=== PATIENT | female | born 1975 | race Caucasian/White ===

== ENCOUNTER 2016-11-24 21:45 | Emergency (ER) | payer MEDICAID ==
[2016-11-24] MEDS ORDERED: ACETAMINOPHEN 325 MG TABLET PO ONE (23:45)
[2016-11-24] MEDS ORDERED: IBUPROFEN 600 MG TABLET PO ONE (23:45)
--- NOTE | 2016-11-24 23:46 | ER Document Report ---
ED General - General Chief Complaint: Fall Injury Stated Complaint: FALL,RIGHT SIDED PAIN Time Seen by Provider: 11/24/16 22:37 Notes: Patient is a 41-year-old female who presents after her knee gave out when she was on her front porch. This caused her to fall down onto her right hand and hit her right buttock on the stair. She was able to ambulate since this time but notes a severe, dull, constant throbbing pain to her right buttock and right shoulder. States moving these areas worsens the pain. Nothing improves the pain. No history of similar events in the past. States she did not hit her head or neck today during the fall. Denies chest pain, shortness of breath , or abdominal pain. She has not seen in her primary care doctor regarding todays concerns. TRAVEL OUTSIDE OF THE [place] IN LAST 30 DAYS: No - Related Data Allergies/Adverse Reactions: adhesive [Adhesive] Allergy (Severe, Verified 01/05/16 20:29) Blisters hydrocodone bitartrate [From Vicodin] Allergy (Severe, Verified 01/05/16 20:29) uncontrolled vomiting latex [Latex] Allergy (Severe, Verified 01/05/16 20:29) itch,swell tide Allergy (Intermediate, Uncoded 01/05/16 20:29) itch,rash Past Medical History - General Information source: Patient - Social History Smoking Status: Never Smoker Frequency of alcohol use: None Drug Abuse: None Lives with: Spouse/Significant other Family History: Arthritis, CAD, CVA, DM, Hyperlipidemia, Hypertension, Malignancy, Thyroid Disfunction Patient has suicidal ideation: No Patient has homicidal ideation: No Pulmonary Medical History: Reports: Hx Asthma, Hx Bronchitis Neurological Medical History: Reports: Hx Migraine Renal/ Medical History: Reports: Hx Ovarian Cysts. Denies: Hx Peritoneal Dialysis Musculoskeltal Medical History: Reports Hx Arthritis, Reports Hx Musculoskeletal Deformity - scoliosis, DDD, Reports Hx Musculoskeletal Trauma Traumatic Medical History: Reports: Hx Fractures - foot and ankle right Past Surgical History: Reports: Hx Abdominal Surgery - diagnostic laparoscopy, Hx Appendectomy, Hx Genitourinary Surgery - urethral diverticulectomy, Hx Gynecologic Surgery - cervical ablation, bladder sling, uterine trimed back lesions, Hx Oral Surgery - all 4 wisdom, Hx Orthopedic Surgery - knee bilateral , carpal tunnel right, Hx Tubal Ligation - Immunizations Immunizations up to date: Yes Hx Diphtheria, Pertussis, Tetanus Vaccination: Yes Review of Systems - Review of Systems Notes: Constitutional: Negative for fever. Eyes: Negative for visual changes. ENT: Negative for facial injury Cardiovascular: Negative for chest injury. Respiratory: Negative for shortness of breath. Gastrointestinal: Negative for abdominal injury. Genitourinary: Negative for genital injury Musculoskeletal: Positive for right buttock and right shoulder injury Skin: Negative for laceration/abrasions. Neurological: Negative for head injury. Physical Exam - Vital signs Vitals: Temp Pulse Resp BP Pulse Ox 97.8 F 68 18 150/97 H 98 11/24/16 21:48 11/24/16 21:48 11/24/16 21:48 11/24/16 21:48 11/24/16 21:48 Interpretation: Hypertensive Notes: PHYSICAL EXAMINATION: GENERAL: Well-appearing, no acute distress. HEAD: Atraumatic, normocephalic. EYES: Pupils equal round and reactive to light, extraocular movements intact, sclera anicteric, conjunctiva are normal. ENT: nares patent, no oral pharyngeal trauma. No hemotympanum, no Zarate's sign , no raccoon eyes. NECK: No midline cervical spine tenderness. Patient able to move their head to 45 bilaterally without any discomfort. LUNGS: Breath sounds clear to auscultation bilaterally and equal. No wheezes rales or rhonchi. HEART: Regular rate and rhythm without murmurs. CHEST WALL: No ecchymosis over the chest wall. ABDOMEN: Soft, nontender, normoactive bowel sounds. No guarding, no rebound. No seatbelt sign. EXTREMITIES: Normal range of motion, no pitting or edema. No abdominal bruising BACK: No midline spinal tenderness, step-offs, or deformities. NEUROLOGICAL: Face symmetric. Tongue protrudes midline. Extraocular motions intact. Pupils are 2 mm and equally reactive. Normal speech, normal gait. 5 out of 5 strength in both the distal and proximal upper and lower extremities bilaterally. Sensation is grossly intact throughout. Finger to nose testing normal. Pronator drift normal. PSYCH: Normal mood, normal affect. SKIN: Warm, Dry, normal turgor, no rashes or lesions noted. Course - Re-evaluation Re-evalutation: 11/24/16 23:46 Presentation of a well patient in no acute distress, vitals within normal limits after a mechanical fall. No focal neurologic deficits on exam, no evidence of basilar skull fracture on exam without evidence of hemotympanum, raccoon eyes, or periauricular hematoma. No papilledema. Patient is not on anticoagulation. GCS is 15. No loss of consciousness. No episodes of vomiting. Patient is therefore negative via Ukrainian head CT criteria and CT imaging will not be obtained at this time. Patient also evaluated by nexus criteria and found to be negative. Patient is also negative by barbadian C-spine criteria. No clinical evidence to suggest increased risk of cervical spine fracture. No indication for further imaging of the cervical spine. Patient does have some limited range of motion of right shoulder son x-ray will be obtained to exclude an acute fracture. Chest and abdominal exam are benign without any focal tenderness, shortness of breath, or bruising over the chest or abdominal wall. Patient has no flank tenderness. - Vital Signs Vital signs: Temp Pulse Resp BP Pulse Ox 97.8 F 68 18 150/97 H 98 11/24/16 21:48 11/24/16 21:48 11/24/16 21:48 11/24/16 21:48 11/24/16 21:48 - Diagnostic Test Radiology reviewed: Image reviewed, Reports reviewed Radiology results interpreted by me: 11/25/16 02:10 Right shoulder: No fracture or dislocation Discharge - Discharge Clinical Impression: Fall Right shoulder pain Qualifiers: Chronicity: acute Qualified Code(s): M25.511 - Pain in right shoulder Strain of gluteus medius of right lower extremity Qualifiers: Encounter type: initial encounter Qualified Code(s): S76.311A - Strain of muscle, fascia and tendon of the posterior muscle group at thigh level, right thigh, initial encounter Condition: Good Disposition: HOME, SELF-CARE Additional Instructions: You have been seen in the Emergency Department (ED) today following a fall. Your workup today did not reveal any injuries that require you to stay in the hospital. You can expect, though, to be stiff and sore for the next several days. You can take ibuprofen 600 mg every 6 hours as needed for pain. You can apply a hot pack or electric heating pad to the sore areas. You can also use topical "Aspercreme with lidocaine" to sore areas as needed. Please follow up with your primary care doctor as soon as possible regarding today's ED visit and your recent accident. Call your doctor or return to the ED if you develop a sudden or severe headache , confusion, slurred speech, facial droop, weakness or numbness in any arm or leg, extreme fatigue, vomiting more than two times, severe abdominal pain, or other symptoms that concern you.
[2016-11-25] MEDS ORDERED: LIDOCAINE 5% (700 MG) TRANSDERMAL ADH..PATCH TP ONE (02:23)
[2016-11-25 02:49] VITALS: BP 132/78
== END 2016-11-25 02:46 | disposition home or self-care (01) ==
LOC: ER 21:45
DX: S76.011A Strain of muscle, fascia and tendon of right hip, initial encounter (principal); S49.91XA Unspecified injury of right shoulder and upper arm, initial encounter; W10.8XXA Fall (on) (from) other stairs and steps, initial encounter; Z91.048 Other nonmedicinal substance allergy status; Z88.5 Allergy status to narcotic agent; Z91.040 Latex allergy status
CPT/HCPCS: 99283; 73030; J3490 ×3

== ENCOUNTER → 2017-04-19 | Outpatient (CLI) | payer MEDICAID ==
--- NOTE | 2017-04-19 16:36 | RADIOLOGY REPORT (SQ) ---
EXAM DESCRIPTION: KNEE LEFT 4 VIEW COMPLETED DATE/TIME: 04/19/2017 2:11 pm REASON FOR STUDY: UNILATERAL PRIMARY OA LEFT KNEE (M17.12) M17.12 UNILATERAL PRIMARY OSTEOARTHRITIS , LEFT KNEE COMPARISON: None. NUMBER OF VIEWS: Four views. TECHNIQUE: AP, lateral, and both oblique radiographic images acquired of the left knee. LIMITATIONS: None. FINDINGS: MINERALIZATION: Normal. BONES: No acute fracture or dislocation. No worrisome bone lesions. JOINT: No effusion. SOFT TISSUES: No soft tissue swelling. No radio-opaque foreign body. OTHER: No other significant finding. IMPRESSION: NEGATIVE STUDY OF THE LEFT KNEE. NO RADIOGRAPHIC EVIDENCE OF ACUTE INJURY. TECHNICAL DOCUMENTATION: JOB ID: [id number] [employer]- All Rights Reserved
== END ==
LOC: RAD 13:39
PROVIDERS: ATTEND Anesthesiology
DX: M17.12 Unilateral primary osteoarthritis, left knee (principal)

== ENCOUNTER 2017-10-31 15:15 | Emergency (ER) | payer MEDICAID, OTHER ==
[2017-10-31] MEDS ORDERED: OXYCODONE-ACETAMINOPHEN 5-325 MG TABLET PO ONE (15:44)
[2017-10-31] MEDS ORDERED: KETOROLAC TROMETHAMINE INJ/PF 30 MG/1 ML SDV IM ONE (15:44)
--- NOTE | 2017-10-31 15:57 | ER Document Report ---
ED Fall - General Chief Complaint: Fall Stated Complaint: FALL/BACK PAIN Time Seen by Provider: 10/31/17 15:35 Mode of Arrival: Medic Information source: Patient TRAVEL OUTSIDE OF THE [place] IN LAST 30 DAYS: No - HPI Patient complains to provider of: fall, back, neck right shoulder pain Occurred: Just prior to arrival Where: Home Notes: Patient is here with complaints of pain after falling. The patient has a long history of chronic pain and is currently on Toradol, Percocet, OxyContin. She had a recent right shoulder surgery at the end of July. She states that she was sitting down had a plastic lawnchair in the living room of her friend's house when the chair broke causing her to fall backwards and hit the back of her head neck right shoulder upper and lower back. She denies loss of consciousness. She is not on blood thinners. She denies any blurred or loss vision. She does complain of a mild headache. She denies any new unilateral numbness, tingling, weakness. No nausea, vomiting, diarrhea. No chest pain or shortness of breath. No abdominal pain. She denies any difficulty controlling her bowels or bladder. Pain is worse with any sort of movement, better with rest. She states the last dose of pain medication she took was to Percocet early this morning, she is not taking any further pain medication today. She denies any other injuries or any other complaints at this time. - Related data Allergies/Adverse Reactions: adhesive [Adhesive] Allergy (Severe, Verified 05/22/17 20:39) Blisters hydrocodone bitartrate [From Vicodin] Allergy (Severe, Verified 05/22/17 20:39) uncontrolled vomiting latex [Latex] Allergy (Severe, Verified 05/22/17 20:39) itch,swell tide Allergy (Intermediate, Uncoded 01/05/16 20:29) itch,rash Past Medical History - Social History Smoking Status: Former Smoker Frequency of alcohol use: Occasional Drug Abuse: None Family History: Arthritis, CAD, CVA, DM, Hyperlipidemia, Hypertension, Malignancy, Thyroid Disfunction Patient has suicidal ideation: No Patient has homicidal ideation: No Pulmonary Medical History: Reports: Hx Asthma, Hx Bronchitis Neurological Medical History: Reports: Hx Migraine Renal/ Medical History: Reports: Hx Ovarian Cysts. Denies: Hx Peritoneal Dialysis Musculoskeltal Medical History: Reports Hx Arthritis, Reports Hx Musculoskeletal Deformity - scoliosis, DDD, Reports Hx Musculoskeletal Trauma Traumatic Medical History: Reports: Hx Fractures - foot and ankle right Past Surgical History: Reports: Hx Abdominal Surgery - diagnostic laparoscopy, Hx Appendectomy, Hx Genitourinary Surgery - urethral diverticulectomy, Hx Gynecologic Surgery - cervical ablation, bladder sling, uterine trimed back lesions, Hx Oral Surgery - all 4 wisdom, Hx Orthopedic Surgery - knee bilateral , carpal tunnel right, Hx Tubal Ligation - Immunizations Immunizations up to date: Yes Hx Diphtheria, Pertussis, Tetanus Vaccination: Yes Review of Systems - Review of Systems -: Yes All other systems reviewed and negative Physical Exam - Vital signs Vitals: Temp Pulse Resp BP Pulse Ox 98.1 F 65 18 147/75 H 99 10/31/17 15:21 10/31/17 15:21 10/31/17 15:21 10/31/17 15:21 10/31/17 15:21 - Notes Notes: GENERAL: alert, cooperative, nontoxic, no distress. HEAD: normocephalic, atraumatic EYES: conjunctiva pink without discharge, no external redness or swelling. PERRL , EOM'S INTACT EARS: no external swelling, no external redness. No hemotympanum EM NOSE: atraumatic, no external swelling. No bleeding MOUTH/THROAT: mucous membranes moist and pink, posterior pharynx without erythema, swelling, exudate. No trismus or drooling. NECK: soft, supple, full range of motion, no meningismus. Mild midline tenderness to palpation of the cervical spine. No step-offs or crepitus. Slight stiffness noted. CHEST: no distress, lungs clear and equal throughout. No wheezing, rales, rhonchi. CARDIAC: regular rate and rhythm, no murmur, normal capillary refill, normal pulses. No peripheral edema noted. ABDOMEN: Soft, nontender. No ecchymosis. BACK: full range of motion, no CVA tenderness. Essentially diffuse tenderness to the midline lumbar and thoracic spine. No step-offs or crepitus. EXTREMITIES: full range of motion of all extremities. No redness, no swelling. NEURO: alert and oriented x 3, no focal deficits, full range of motion of all extremities. Cranial nerves II through XII are grossly intact. Reflexes are normal bilaterally to upper and lower extremities. Normal sensation bilaterally. Normal strength bilaterally. PYSCH: appropriate mood, affect. Patient is cooperative. SKIN: pink, warm, dry, no rash. Course - Re-evaluation Re-evalutation: 10/31/17 17:09 Patient is nontoxic appearing with stable vitals. Patient is here today after falling from a chair. She has a history of chronic pain and is on Toradol, Percocet, OxyContin. She states that she sat in a plastic lawnchair that was on a hardwood floor causing her to fall backwards and landed on her back. She denies any loss of consciousness. She is on no blood thinners. She has a nonfocal neurological exam. She essentially has tenderness along her entire spine. CT the cervical spine as well as x-rays of the thoracic and lumbar spine show no acute fractures. X-rays of the right shoulder show no acute process. Patient has no sign of cauda equina, epidural abscess/bleed. She had no loss of consciousness, is not on blood thinning medications, had a minor fall , is on a blood thinning medications, therefore I did not CT her brain. Patient will be discharged home with instructions to take her normal pain medication as prescribed. Follow-up with her doctors if not better in 1 week, sooner for worsening pain, fever, numbness, tingling, weakness, bowel or bladder dysfunction, persistent vomiting, or for any further concerns. The patient is noted to have elevated blood pressure during today's emergency department visit. The patient was informed of this finding. The patient was instructed that this may be related to pre-hypertension and requires further evaluation with a primary care provider. The patient has no hypertensive symptoms at this time. The patient's emergency department workup and current diagnosis were explained to the patient and or family. Follow-up instructions were provided. Medications if prescribed were discussed. Instructions for when to return to the emergency department including specific worrisome symptoms were discussed with the patient and/or family. - Vital Signs Vital signs: Temp Pulse Resp BP Pulse Ox 98.1 F 65 18 147/75 H 99 10/31/17 15:21 10/31/17 15:21 10/31/17 15:21 10/31/17 15:21 10/31/17 15:21 - Diagnostic Test Radiology reviewed: Image reviewed, Reports reviewed - CT cervical spine, x- rays of thoracic and lumbar spine, x-rays of right shoulder, show no acute findings. Discharge - Discharge Clinical Impression: Multiple contusions, Strains of multiple ligaments or muscles Condition: Stable Disposition: HOME, SELF-CARE Instructions: Muscle Strain ([facility]), Neck Injury (Cervical Strain) ([facility]), Upper Back Strain ([facility]), Contusion ([facility]) Additional Instructions: Take your normal pain medication as needed for pain. Apply ice to sore areas. Avoid lying around and try to stay somewhat active without any heavy lifting. Follow-up with your doctor if not better in 1 week, sooner for worsening pain, high fever, persistent vomiting, severe headache, blurred or loss vision, difficulty controlling her bowels or bladder, or for any further concerns. Your blood pressure was elevated during today's visit. Have this rechecked with your doctor. Forms: Elevated Blood Pressure, Smoking Cessation Education Referrals: [facility] [Provider Group] - Follow up as needed
--- NOTE | 2017-10-31 16:27 | RADIOLOGY REPORT (SQ) ---
EXAM DESCRIPTION: CT CERVICAL SPINE WITHOUT COMPLETED DATE/TIME: 10/31/2017 4:15 pm REASON FOR STUDY: fall from chair, pain COMPARISON: None. TECHNIQUE: Axial images acquired through the cervical spine without intravenous contrast. Images re viewed with lung, soft tissue and bone windows. Reconstructed coronal and sagittal MPR images review ed. Images stored on PACS. All CT scanners at this facility use dose modulation, iterative reconstruction, and/or weight based d osing when appropriate to reduce radiation dose to as low as reasonably achievable (ALARA). [facility]: Dose Right [facility]: CareDose [facility]: Dose Right [facility]: Teradose 4D [facility]: Smart Revolver RADIATION DOSE: CT Rad equipment meets quality standard of care and radiation dose reduction techniq ues were employed. CTDIvol: 22.0 mGy. DLP: 442 mGy-cm. mGy. LIMITATIONS: None. FINDINGS: ALIGNMENT: Anatomic. MINERALIZATION: Normal. VERTEBRAL BODIES: No fractures or dislocation. DISCS: No significant disc disease. FACETS, LATERAL MASSES, POSTERIOR ELEMENTS: No fractures. No dislocation. No acute findings. HARDWARE: None in the spine. VISUALIZED RIBS: No fractures. LUNG APICES AND SOFT TISSUES: No significant or acute findings. OTHER: No other significant finding. IMPRESSION: NO ACUTE OR SIGNIFICANT FINDINGS IN THE CERVICAL SPINE. TECHNICAL DOCUMENTATION: JOB ID: [id number] Quality ID # [id number]: Final reports with documentation of one or more dose reduction techniques (e.g., Au tomated exposure control, adjustment of the mA and/or kV according to patient size, use of iterative reconstruction technique) 2010 [employer]- All Rights Reserved Reading location - IP/workstation name: [email or web address]
--- NOTE | 2017-10-31 16:45 | RADIOLOGY REPORT (SQ) ---
EXAM DESCRIPTION: SHOULDER RIGHT 2 OR MORE VIEWS COMPLETED DATE/TIME: 10/31/2017 4:36 pm REASON FOR STUDY: fall from chair, pain COMPARISON: 05/22/2017 NUMBER OF VIEWS: Three views. TECHNIQUE: Internal rotation, external rotation, and Y view images acquired of the right shoulder. LIMITATIONS: None. FINDINGS: MINERALIZATION: Normal. BONES: No acute fracture or dislocation. No worrisome bone lesions. JOINTS: No dislocation. VISUALIZED LUNGS AND RIBS: No pneumothorax. No rib fracture. SOFT TISSUES: No radiopaque foreign body. OTHER: No other significant finding. IMPRESSION: NEGATIVE STUDY OF THE RIGHT SHOULDER. NO RADIOGRAPHIC EVIDENCE OF ACUTE INJURY. TECHNICAL DOCUMENTATION: JOB ID: [id number] [employer]- All Rights Reserved Reading location - IP/workstation name: [email or web address]
--- NOTE | 2017-10-31 16:47 | RADIOLOGY REPORT (SQ) ---
EXAM DESCRIPTION: L SPINE WHOLE COMPLETED DATE/TIME: 10/31/2017 4:36 pm REASON FOR STUDY: fall from chair, pain COMPARISON: 10/01/2015 NUMBER OF VIEWS: Five views including obliques. TECHNIQUE: AP, lateral, oblique, and sacral radiographic images acquired of the lumbar spine. LIMITATIONS: None. FINDINGS: MINERALIZATION: Normal. SEGMENTATION: Normal. No transitional anatomy. ALIGNMENT: Minimal scoliosis. VERTEBRAE: Maintained height. No fracture or worrisome bone lesion. DISCS: Preserved height. No significant osteophytes or end plate irregularity. POSTERIOR ELEMENTS: Pedicles and facets are intact. No pars defect or posterior arch defects. HARDWARE: None in the spine. PARASPINAL SOFT TISSUES: Normal. PELVIS: Intact as visualized. No fractures or worrisome bone lesions. SI joints intact. OTHER: No other significant finding. IMPRESSION: Minimal scoliosis. No acute abnormality. TECHNICAL DOCUMENTATION: JOB ID: [id number] [employer]- All Rights Reserved Reading location - IP/workstation name: [email or web address]
--- NOTE | 2017-10-31 16:52 | RADIOLOGY REPORT (SQ) ---
EXAM DESCRIPTION: T SPINE AP/LAT COMPLETED DATE/TIME: 10/31/2017 4:36 pm REASON FOR STUDY: fall from chair, pain COMPARISON: None. NUMBER OF VIEWS: Two views. TECHNIQUE: AP and lateral radiographic images acquired of the thoracic spine. LIMITATIONS: None. FINDINGS: MINERALIZATION: Normal. ALIGNMENT: Normal. No scoliosis. VERTEBRAE: No fracture or bone lesion. Maintained height, normal segmentation. DISCS: No significant loss of height or significant narrowing. No large osteophytes. HARDWARE: None in the spine. MEDIASTINUM AND SOFT TISSUES: Normal heart size and aortic contour. No soft tissue abnormality. VISUALIZED LUNG COBB: Clear. OTHER: No other significant finding. IMPRESSION: NO SIGNIFICANT RADIOGRAPHIC FINDING IN THE THORACIC SPINE. TECHNICAL DOCUMENTATION: JOB ID: [id number] [employer]- All Rights Reserved Reading location - IP/workstation name: [email or web address]
[2017-10-31 17:27] VITALS: BP 114/67
== END 2017-10-31 17:27 | disposition home or self-care (01) ==
LOC: ER 15:15
DX: T14.8XXA Other injury of unspecified body region, initial encounter (principal); M54.9 Dorsalgia, unspecified; M54.2 Cervicalgia; M54.5 Low back pain; M54.6 Pain in thoracic spine; G89.29 Other chronic pain; R51 Headache; M25.511 Pain in right shoulder; R03.0 Elevated blood-pressure reading, without diagnosis of hypertension; W19.XXXA Unspecified fall, initial encounter; Z79.899 Other long term (current) drug therapy; Z87.891 Personal history of nicotine dependence; J45.909 Unspecified asthma, uncomplicated
CPT/HCPCS: 99284; 96372; 72110; 73030; 72070; 72125; J1885

== ENCOUNTER 2017-12-09 13:48 | Emergency (ER) | payer MEDICAID, OTHER ==
[2017-12-09] MEDS ORDERED: FENTANYL CITRATE INJ/PF 100 MCG/2 ML AMPUL IM ONE (14:41)
[2017-12-09] MEDS ORDERED: CEFTRIAXONE INJ 1000 MG VIAL IM ONE (14:41)
--- NOTE | 2017-12-09 14:44 | ER Document Report ---
ED Medical Screen (RME) - General Chief Complaint: Skin Problem Stated Complaint: POSSIBLE INSECT BITE Time Seen by Provider: 12/09/17 14:37 Notes: RAPID MEDICAL EVALUATION DISCLOSURE I have seen this patient as part of a Rapid Medical Evaluation and, if applicable, placed any initially appropriate orders. The patient will be seen and fully evaluated, including a full history and physical exam, by a provider ( in Main ED or Fast Track) when a room becomes available. 42-year-old female here with complaints of buttock abscess that she was seen for and prescribed Keflex. It was already draining green purulent material and she states it continues to drain green purulent material. She is here today because she has had subjective fevers chills and the pain has worsened. She feels like the area of redness has worsened as well. TRAVEL OUTSIDE OF THE [place] IN LAST 30 DAYS: No - Related Data Allergies/Adverse Reactions: adhesive [Adhesive] Allergy (Severe, Verified 12/09/17 13:50) Blisters hydrocodone bitartrate [From Vicodin] Allergy (Severe, Verified 12/09/17 13:50) uncontrolled vomiting latex [Latex] Allergy (Severe, Verified 12/09/17 13:50) itch,swell tide Allergy (Intermediate, Uncoded 12/09/17 13:50) itch,rash Past Medical History Pulmonary Medical History: Reports: Hx Asthma, Hx Bronchitis Neurological Medical History: Reports: Hx Migraine Renal/ Medical History: Reports: Hx Ovarian Cysts. Denies: Hx Peritoneal Dialysis Musculoskeltal Medical History: Reports Hx Arthritis, Reports Hx Musculoskeletal Deformity - scoliosis, DDD, Reports Hx Musculoskeletal Trauma Traumatic Medical History: Reports: Hx Fractures - foot and ankle right Past Surgical History: Reports: Hx Abdominal Surgery - diagnostic laparoscopy, Hx Appendectomy, Hx Genitourinary Surgery - urethral diverticulectomy, Hx Gynecologic Surgery - cervical ablation, bladder sling, uterine trimed back lesions, Hx Oral Surgery - all 4 wisdom, Hx Orthopedic Surgery - knee bilateral , carpal tunnel right, Hx Tubal Ligation - Immunizations Immunizations up to date: Yes Hx Diphtheria, Pertussis, Tetanus Vaccination: Yes Physical Exam - Vital signs Vitals: Temp Pulse Resp BP Pulse Ox 99.8 F 97 24 H 170/110 H 99 12/09/17 14:02 12/09/17 14:02 12/09/17 14:02 12/09/17 14:02 12/09/17 14:02 Course - Vital Signs Vital signs: Temp Pulse Resp BP Pulse Ox 99.8 F 97 24 H 170/110 H 99 12/09/17 14:02 12/09/17 14:02 12/09/17 14:02 12/09/17 14:02 12/09/17 14:02
[2017-12-09] MEDS ORDERED: CLINDAMYCIN 600 MG/D5W RTU 600 MG/50 ML RTUPB IV ONE (15:31)
--- NOTE | 2017-12-09 15:36 | ER Document Report ---
ED Skin Rash/Insect Bite/Abscs - General Chief Complaint: Skin Problem Stated Complaint: POSSIBLE INSECT BITE Time Seen by Provider: 12/09/17 14:37 Mode of Arrival: Ambulatory Information source: Patient TRAVEL OUTSIDE OF THE [place] IN LAST 30 DAYS: No - HPI Patient complains to provider of: Tender/swollen area Notes: Patient is here with complaints of possible abscess to the right buttock. She states that about a week ago she noticed a small swollen area to the right buttock. She developed fevers states that her fevers has since improved and she has had no fever today. She was seen by her primary care doctor a few days after noticing the swollen area and was placed on Keflex. She states that a few days ago the area ruptured and is been draining brown foul-smelling drainage. Pain seems to be getting worse. Again she had a fever, but states the fever has since resolved. She denies any nausea, vomiting, diarrhea. She denies a history of diabetes. She does have a history of chronic pain. She is on Toradol, Percocet, OxyContin. She denies any abdominal pain. She has had an abscess in the past, but this was several years ago. Pain is worse with touching the area as well as sitting, nothing seems to make it better. No other complaints at this time. - Related Data Allergies/Adverse Reactions: adhesive [Adhesive] Allergy (Severe, Verified 12/09/17 13:50) Blisters hydrocodone bitartrate [From Vicodin] Allergy (Severe, Verified 12/09/17 13:50) uncontrolled vomiting latex [Latex] Allergy (Severe, Verified 12/09/17 13:50) itch,swell tide Allergy (Intermediate, Uncoded 12/09/17 13:50) itch,rash Past Medical History - Social History Smoking Status: Unknown if Ever Smoked Family History: Arthritis, CAD, CVA, DM, Hyperlipidemia, Hypertension, Malignancy, Thyroid Disfunction Patient has suicidal ideation: No Patient has homicidal ideation: No Pulmonary Medical History: Reports: Hx Asthma, Hx Bronchitis Neurological Medical History: Reports: Hx Migraine Renal/ Medical History: Reports: Hx Ovarian Cysts. Denies: Hx Peritoneal Dialysis Musculoskeltal Medical History: Reports Hx Arthritis, Reports Hx Musculoskeletal Deformity - scoliosis, DDD, Reports Hx Musculoskeletal Trauma Traumatic Medical History: Reports: Hx Fractures - foot and ankle right Past Surgical History: Reports: Hx Abdominal Surgery - diagnostic laparoscopy, Hx Appendectomy, Hx Genitourinary Surgery - urethral diverticulectomy, Hx Gynecologic Surgery - cervical ablation, bladder sling, uterine trimed back lesions, Hx Oral Surgery - all 4 wisdom, Hx Orthopedic Surgery - knee bilateral , carpal tunnel right, Hx Tubal Ligation - Immunizations Immunizations up to date: Yes Hx Diphtheria, Pertussis, Tetanus Vaccination: Yes Review of Systems - Review of Systems -: Yes All other systems reviewed and negative Physical Exam - Vital signs Vitals: Temp Pulse Resp BP Pulse Ox 99.8 F 97 24 H 170/110 H 99 12/09/17 14:02 12/09/17 14:02 12/09/17 14:02 12/09/17 14:02 12/09/17 14:02 - Notes Notes: GENERAL: alert, cooperative, nontoxic, no distress. HEAD: normocephalic, atraumatic EYES: conjunctiva pink without discharge, no external redness or swelling. EARS: no external swelling, no external redness NOSE: atraumatic, no external swelling MOUTH/THROAT: mucous membranes moist and pink, posterior pharynx without erythema, swelling, exudate. No trismus or drooling. NECK: soft, supple, full range of motion, no meningismus. CHEST: no distress, lungs clear and equal throughout. No wheezing, rales, rhonchi. CARDIAC: regular rate and rhythm, no murmur, normal capillary refill, normal pulses. No peripheral edema noted. ABDOMEN: Soft, nontender. BACK: full range of motion, no CVA tenderness. EXTREMITIES: full range of motion of all extremities. No redness, no swelling. NEURO: alert and oriented x 3, no focal deficits, full range of motion of all extremities. PYSCH: appropriate mood, affect. Patient is cooperative. SKIN: pink, warm, dry, no rash. RECTAL: Performed with female orderlies teacher at the bedside. Patient is noted to have 2 separate large openings to the right buttock approximately 1 cm from the rectum draining brown foul-smelling drainage. This area is tender to palpation. Surrounding skin is excoriated and red. On rectal exam, the patient has tenderness on deeper rectal exam. Course - Re-evaluation Re-evalutation: 12/09/17 18:24 Patient is nontoxic appearing with stable vitals. She is here with complaints of right buttock abscess present for about a week now. She reports having fevers at the onset of the illness, but has not had a fever over the last few days. She is currently taking Keflex but continues to have drainage and states that the pain is getting worse. On exam she is noted to have a abscess to the right buttock that is actively draining from 2 separate holes. There is some mild surrounding erythema and tenderness. She is afebrile here with stable vitals. Her white blood cell count is unremarkable. Chemistries are unremarkable. CT of the pelvis with IV contrast shows no acute abnormality with no significant drainable deep abscess. Patient does not have diabetes. At this point the patient was given a dose of clindamycin IV as well as pain medication and can be discharged home with clindamycin. She is instructed to continue with warm soaks. To follow-up if not improving in the next 2 days, follow-up sooner for worsening pain, fever, swelling, drainage, any further concerns. The patient is noted to have elevated blood pressure during today's emergency department visit. The patient was informed of this finding. The patient was instructed that this may be related to pre-hypertension and requires further evaluation with a primary care provider. The patient has no hypertensive symptoms at this time. The patient's emergency department workup and current diagnosis were explained to the patient and or family. Follow-up instructions were provided. Medications if prescribed were discussed. Instructions for when to return to the emergency department including specific worrisome symptoms were discussed with the patient and/or family. - Vital Signs Vital signs: Temp Pulse Resp BP Pulse Ox 99.8 F 97 24 H 170/110 H 99 12/09/17 14:02 12/09/17 14:02 12/09/17 14:02 12/09/17 14:02 12/09/17 14:02 - Laboratory Result Diagrams: 12/09/17 16:25 12/09/17 16:25 Laboratory results interpreted by me: 12/09/17 12/09/17 16:25 16:25 WBC 10.7 H Chloride 110 H - Diagnostic Test Radiology reviewed: Image reviewed, Reports reviewed - CT pelvis with IV contrast shows no acute abnormality. Discharge - Discharge Clinical Impression: Abscess of buttock, right Condition: Stable Disposition: HOME, SELF-CARE Instructions: Abscess ([facility]) Additional Instructions: Take medications as prescribed. Continue warm soaks. Follow-up with your doctor in 2 days for recheck. Follow-up with surgery as needed. Return the emergency department or follow-up sooner for worsening pain, high fever, persistent vomiting, or for any further concerns. Your blood pressure was elevated during today's visit. Have this rechecked with your doctor. You may take your normal pain medication as needed for pain. Prescriptions: Clindamycin HCl 300 mg PO QID #40 capsule Forms: Elevated Blood Pressure, Smoking Cessation Education Referrals: CAHR MURO MD [Primary Care Provider] - Follow up as needed [facility] [Provider Group] - Follow up as needed
[2017-12-09] MEDS ORDERED: ONDANSETRON HCL INJ/PF 4 MG/2 ML SDV IV ONE (16:02)
[2017-12-09] MEDS ORDERED: HYDROMORPHONE HCL INJ/PF 2 MG/ML AMPULE IV ONE ×2 (16:02→18:01)
[2017-12-09 16:56] LABS: ABSOLUTE BASOPHILS # (AUTO) 0.1 10^3/uL (0.0-0.2); ABSOLUTE EOSINOPHILS # (AUTO) 0.1 10^3/uL (0.0-0.6); ABSOLUTE LYMPHOCYTES (AUTO) 2.2 10^3/uL (0.5-4.7); ABSOLUTE MONOCYTES (AUTO) 0.8 10^3/uL (0.1-1.4); ABSOLUTE NEUT (AUTO) 7.6 10^3/uL (1.7-8.2); BASOPHILS % (AUTO) 0.7 % (0-2); EOSINOPHILS % (AUTO) 0.6 % (0-6); HEMATOCRIT 36.7 % (36.0-47.0); HEMOGLOBIN 12.6 g/dL (12.0-15.5); LYMPHOCYTES % (AUTO) 20.2 % (13-45); MEAN CORPUSCULAR HEMOGLOBIN 29.6 pg (27.0-33.4); MEAN CORPUSCULAR HGB CONC 34.4 g/dL (32.0-36.0); MEAN CORPUSCULAR VOLUME 86 fl (80-97); MONOCYTES % (AUTO) 7.6 % (3-13); PLATELET COUNT 301 10^3/uL (150-450); RED BLOOD COUNT 4.27 10^6/uL (3.72-5.28); RED CELL DISTRIBUTION WIDTH 12.3 % (11.5-14.0); SEGMENTED NEUTROPHILS % (AUTO) 70.9 % (42-78); TOTAL CELLS COUNTED % (AUTO) 100 %; WHITE BLOOD COUNT 10.7 10^3/uL (4.0-10.5)
[2017-12-09 17:11] LABS: ALANINE AMINOTRANSFERASE 35 U/L (9-52); ALBUMIN 3.8 g/dL (3.5-5.0); ALKALINE PHOSPHATASE 64 U/L (38-126); ANION GAP 11 (5-19); ASPARTATE AMINO TRANSFERASE 20 U/L (14-36); BILIRUBIN,DIRECT 0.3 mg/dL (0.0-0.4); BILIRUBIN,TOTAL 0.3 mg/dL (0.2-1.3); BLOOD UREA NITROGEN 9 mg/dL (7-20); CALCIUM 9.2 mg/dL (8.4-10.2); CARBON DIOXIDE 23 mmol/L (22-30); CHLORIDE 110 mmol/L (98-107); GLUCOSE 106 mg/dL (75-110); SODIUM 144.1 mmol/L (137-145); TOTAL PROTEIN 6.6 g/dL (6.3-8.2)
--- NOTE | 2017-12-09 17:47 | RADIOLOGY REPORT (SQ) ---
EXAM DESCRIPTION: CT PELVIS WITH COMPLETED DATE/TIME: 12/09/2017 5:36 pm REASON FOR STUDY: rectal abscess, IV contrast only COMPARISON: None. TECHNIQUE: CT scan of the pelvis performed with intravenous contrast using helical scanning techniqu e with dynamic intravenous contrast injection. Images reviewed with soft tissue and bone windows. Rec onstructed coronal and sagittal MPR images reviewed. Delayed images for evaluation of the urinary sys tem also acquired. All images stored on PACS. All CT scanners at this facility use dose modulation, iterative reconstruction, and/or weight based d osing when appropriate to reduce radiation dose to as low as reasonably achievable (ALARA). [facility]: Dose Right [facility]: CareDose [facility]: Dose Right [facility]: Teradose 4D [facility]: SchemaLogic CONTRAST TYPE AND DOSE: contrast/concentration: Isovue 370.00 mg/ml; Total Contrast Delivered: 100.0 ml; Total Saline Delivered: 72.0 ml RENAL FUNCTION: None required. The patient is less than 50 years old. RADIATION DOSE: CT Rad equipment meets quality standard of care and radiation dose reduction techniq ues were employed. CTDIvol: 21.1 - 21.1 mGy. DLP: 1691 mGy-cm.. LIMITATIONS: None. FINDINGS: PELVIC BONES: No acute fracture. No worrisome bone lesions. VISUALIZED SPINE: No acute findings. HIP(S): No acute fracture or dislocation. No worrisome bone lesions. PELVIC SOFT TISSUES: No significant findings. EXTRAPELVIC SOFT TISSUES: No significant findings. No significant inflammatory changes. No evidence of abscess in the subcutaneous tissues or perirectal tissues. OTHER: No other significant finding. IMPRESSION: NO SIGNIFICANT OR ACUTE FINDINGS IN THE PELVIS. NO SOFT TISSUE ABSCESS OR PERIRECTAL AB SCESS IDENTIFIED. TECHNICAL DOCUMENTATION: JOB ID: [id number] Quality ID # [id number]: Final reports with documentation of one or more dose reduction techniques (e.g., Au tomated exposure control, adjustment of the mA and/or kV according to patient size, use of iterative reconstruction technique) 2010 [employer]- All Rights Reserved Reading location - IP/workstation name: [email or web address]
[2017-12-09 19:19] VITALS: BP 120/57
== END 2017-12-09 19:10 | disposition home or self-care (01) ==
LOC: ER 13:48
DX: L02.31 Cutaneous abscess of buttock (principal); R50.9 Fever, unspecified; R03.0 Elevated blood-pressure reading, without diagnosis of hypertension; Z91.040 Latex allergy status; Z88.6 Allergy status to analgesic agent
CPT/HCPCS: 96376; 99284; 96372; 96375; 96365; 36415; 87040; 85025; 80053; 72193; S0077; J3010; J1170; J2405

== ENCOUNTER 2018-03-02 13:58 | Emergency (ER) | payer MEDICAID, OTHER ==
--- NOTE | 2018-03-02 15:52 | RADIOLOGY REPORT (SQ) ---
EXAM DESCRIPTION: HAND LEFT 3 VIEWS COMPLETED DATE/TIME: 03/02/2018 3:36 pm REASON FOR STUDY: pain and fall COMPARISON: 11/03/2010 EXAM PARAMETERS: NUMBER OF VIEWS: Three views. TECHNIQUE: AP, lateral and oblique radiographic images acquired of the left hand. LIMITATIONS: None. FINDINGS: MINERALIZATION: Normal. BONES: No acute fracture or dislocation. No worrisome bone lesions. JOINTS: No effusions. SOFT TISSUES: No soft tissue swelling. No foreign body. OTHER: No other significant finding. IMPRESSION: NEGATIVE STUDY OF THE LEFT HAND. NO RADIOGRAPHIC EVIDENCE OF ACUTE INJURY. TECHNICAL DOCUMENTATION: JOB ID: [id number] [employer]- All Rights Reserved Reading location - IP/workstation name: [email or web address]
--- NOTE | 2018-03-02 15:53 | RADIOLOGY REPORT (SQ) ---
EXAM DESCRIPTION: WRIST LEFT 3 VIEWS COMPLETED DATE/TIME: 03/02/2018 3:36 pm REASON FOR STUDY: pain and fall COMPARISON: None. NUMBER OF VIEWS: Three views. TECHNIQUE: AP, lateral, and oblique radiographic images acquired of the left wrist. LIMITATIONS: None. FINDINGS: MINERALIZATION: Normal. BONES: No acute fracture or dislocation. No worrisome bone lesions. Normal alignment. SOFT TISSUES: No soft tissue swelling. No foreign body. OTHER: No other significant finding. IMPRESSION: NEGATIVE STUDY OF THE LEFT WRIST. NO RADIOGRAPHIC EVIDENCE OF ACUTE INJURY. TECHNICAL DOCUMENTATION: JOB ID: [id number] [employer]- All Rights Reserved Reading location - IP/workstation name: [email or web address]
--- NOTE | 2018-03-02 17:26 | ER Document Report ---
ED Hand/Wrist Injury - General Chief Complaint: Wrist Injury Stated Complaint: WRIST PAIN Time Seen by Provider: 03/02/18 15:00 Mode of Arrival: Ambulatory Information source: Patient Notes: 42-year-old female presented ED for complaint of pain to her left wrist. She states she stepped in the water last night and landed on her left wrist. She states he was issued a sharp shooting pain to the wrist at the time of the injury. She states she has not been to see a doctor since then. She states she has chronic pain management medicine at home and she took her Percocet this morning but has not had any since then. She states if it was okay she was going to take one while she was waiting for x-rays. I told her that she could take her Percocet if she desired. Regular and unlabored speaking in full sentences. She did have a set key driver to drive her home. TRAVEL OUTSIDE OF THE [place] IN LAST 30 DAYS: No - HPI Injury to: Wrist - left Onset: Yesterday Where: Home Timing: Still present Quality of pain: Achy, Throbbing Severity: Moderate Pain Level: 3 Context: Fall - Related Data Allergies/Adverse Reactions: adhesive [Adhesive] Allergy (Severe, Verified 03/02/18 13:59) Blisters hydrocodone bitartrate [From Vicodin] Allergy (Severe, Verified 03/02/18 13:59) uncontrolled vomiting latex [Latex] Allergy (Severe, Verified 03/02/18 13:59) itch,swell tide Allergy (Intermediate, Uncoded 03/02/18 13:59) itch,rash Past Medical History - General Information source: Patient - Social History Smoking Status: Former Smoker Cigarette use (# per day): No Chew tobacco use (# tins/day): No Smoking Education Provided: No Frequency of alcohol use: Rare Drug Abuse: None Occupation: [employer] Lives with: Alone - With child Family History: Arthritis, CAD, CVA, DM, Hyperlipidemia, Hypertension, Malignancy, Thyroid Disfunction Patient has suicidal ideation: No Patient has homicidal ideation: No - Medical History Medical History: Other - Past Medical History Cardiac Medical History: Reports: None Pulmonary Medical History: Reports: Hx Asthma, Hx Bronchitis EENT Medical History: Reports: None Neurological Medical History: Reports: Hx Migraine Endocrine Medical History: Reports: None Renal/ Medical History: Reports: Hx Ovarian Cysts Malignancy Medical History: Reports: None GI Medical History: Reports: None Musculoskeletal Medical History: Reports Hx Arthritis, Reports Hx Musculoskeletal Deformity - scoliosis, DDD, Reports Hx Musculoskeletal Trauma Skin Medical History: Reports None Psychiatric Medical History: Reports: None Traumatic Medical History: Reports: Hx Fractures - foot and ankle right Infectious Medical History: Reports: None Past Surgical History: Reports: Hx Abdominal Surgery - diagnostic laparoscopy, Hx Appendectomy, Hx Genitourinary Surgery - urethral diverticulectomy, Hx Gynecologic Surgery - cervical ablation,, uterine trimed back lesions, Hx Oral Surgery - all 4 wisdom, Hx Orthopedic Surgery - knee bilateral, carpal tunnel right, Hx Tubal Ligation, Hx Urinary Tract Surgery - bladder sling - Immunizations Immunizations up to date: Yes Hx Diphtheria, Pertussis, Tetanus Vaccination: Yes Review of Systems - Review of Systems Constitutional: No symptoms reported EENT: No symptoms reported Cardiovascular: No symptoms reported Respiratory: No symptoms reported Gastrointestinal: No symptoms reported Genitourinary: No symptoms reported Female Genitourinary: No symptoms reported Musculoskeletal: No symptoms reported Skin: No symptoms reported Hematologic/Lymphatic: No symptoms reported Neurological/Psychological: No symptoms reported -: Yes All other systems reviewed and negative Physical Exam - Vital signs Vitals: Temp Pulse Resp BP Pulse Ox 98.2 F 71 18 166/98 H 99 03/02/18 14:22 03/02/18 14:22 03/02/18 14:22 03/02/18 14:22 03/02/18 14:22 Interpretation: Normal - General General appearance: Appears well, Alert - HEENT Head: Normocephalic, Atraumatic Eyes: Normal Pupils: PERRL - Respiratory Respiratory status: No respiratory distress Chest status: Nontender Breath sounds: Normal Chest palpation: Normal - Cardiovascular Rhythm: Regular Heart sounds: Normal auscultation Murmur: No - Abdominal Inspection: Normal Distension: No distension Bowel sounds: Normal Tenderness: Nontender Organomegaly: No organomegaly - Back Back: Normal, Nontender - Extremities General upper extremity: Normal color, Normal temperature General lower extremity: Normal inspection, Nontender, Normal color, Normal ROM , Normal temperature, Normal weight bearing. No: Devora's sign Wrist: Tender, Ecchymosis, Limited ROM Hand: Tender, No evidence of human bite, No evidence of FB, Swelling - Neurological Neuro grossly intact: Yes Cognition: Normal Orientation: AAOx4 [place] Coma Scale Eye Opening: Spontaneous [place] Coma Scale Verbal: Oriented [place] Coma Scale Motor: Obeys Commands [place] Coma Scale Total: 15 Speech: Normal Motor strength normal: LUE, RUE, LLE, RLE Sensory: Normal - Psychological Associated symptoms: Normal affect, Normal mood - Skin Skin Temperature: Warm Skin Moisture: Dry Skin Color: Normal Course - Re-evaluation Re-evalutation: 03/02/18 21:43 Discussed x-ray with patient and written report of x-ray given the patient to follow-up with orthopedics. Cock-up splint was applied to the wrist for comfort. Patient has her own pain medicine from her chronic pain management doctor. - Vital Signs Vital signs: Temp Pulse Resp BP Pulse Ox 98.7 F 70 18 139/78 H 100 03/02/18 17:39 03/02/18 17:39 03/02/18 17:39 03/02/18 17:39 03/02/18 17:39 - Diagnostic Test Radiology reviewed: Image reviewed, Reports reviewed Procedures - Immobilization Left Wrist Time completed: 17:25 Pre-Proc Neuro Vasc Exam: Normal Immobilizer type: Cock-up Performed by: PCT Post-Proc Neuro Vasc Exam: Normal Alignment checked and good: Yes Discharge - Discharge Clinical Impression: Contusion of left hand Qualifiers: Encounter type: initial encounter Qualified Code(s): S60.222A - Contusion of left hand, initial encounter Condition: Stable Disposition: HOME, SELF-CARE Additional Instructions: CONTUSION: Your injury has resulted in a contusion -- a crushing of the deep tissues. No injury to important structures was detected during the physician's exam. Contusions vary in the amount of pain they cause, and in the length of time required for healing. Typically, the area will become bruised, and will remain painful to touch for two or three weeks. However, most patients are back to working and playing within a few days. After the initial period of rest and cold-packs, your symptoms (together with the doctor's recommendations) will determine how rapidly you can get back to full activity. Usually this means "do what feels okay, but don't do things that hurt." If re-examination was recommended, it's important to follow up as instructed. Call the doctor or return any time if pain increases, if swelling becomes severe, if you develop numbness or weakness in an injured extremity, or if any other alarming symptoms occur. USE OF TYLENOL (ACETAMINOPHEN): Acetaminophen may be taken for pain relief or fever control. It's much safer than aspirin, offering a wider range of "safe" dosages. It is safe during . Some brand names are Tylenol, Panadol, Datril, Anacin 3, Tempra, and Liquiprin. Acetaminophen can be repeated every four hours. The following are maximum recommended dosages: WEIGHT Dose Drops Elixir Chewable( 80mg) (LBS.) drprs=droppers tsp=teaspoon 6 40 mg 0.4 ml (1/2) 6-11 80 mg 0.8 ml (full) tsp 1 tab 12-16 120 mg 1 1/2 drprs 3/4 tsp 1 1/2 tabs 17-23 160 mg 2 drprs 1 tsp 2 tabs 24-30 240 mg 3 drprs 1 1/2 tsp 3 tabs 30-35 320 mg 2 tsp 4 tabs 36-41 360 mg 2 1/4 tsp 4 1/2 tabs 42-47 400 mg 2 1/2 tsp 5 tabs 48-53 480 mg 3 tsp 6 tabs 54-59 520 mg 3 1/4 tsp 6 1/2 tabs 60-64 560 mg 3 1/2 tsp 7 tabs 65-70 600 mg 3 3/4 tsp 7 1/2 tabs 71-76 640 mg 4 tsp 8 tabs 77-82 720 mg 4 1/2 tsp 9 tabs 83-88 800 mg 5 tsp 10 tabs >89 pounds or adults 650 mg to 900 mg Acetaminophen can be repeated every four hours. Maximum dose not to exceed 4000 mg a day. These maximum recommended dosages are slightly higher than the dosages written on the product container, but these dosages are very safe and below the toxic dosage for acetaminophen. SPLINT PRECAUTIONS: A splint has been placed. This will protect the area while healing begins. Your problem does NOT normally require a cast. It MUST, however, be held still! Keep the splint on ALL THE TIME until instructed to remove it by the doctor. As you begin to use the area, be careful. You shouldn't do anything which causes discomfort -- you may disturb the injury even with the splint in place. After the initial period of rest and elevation, if splint does not prevent pain when you move, come back. You may require placement of a different splint , or a cast. If there is unexpected severe pain, or numbness, discoloration, or swelling beyond the splint, you should return at once. If you feel that the splint has broken or become loose, come back. Continue your current medications for your chronic pain and your anti- inflammatories as prescribed. Your x-rays do not show any broken bones. I have put the cock-up splint on you for your comfort. Follow-up with your primary doctor. I have also given the name orthopedics for you to follow-up if the pain does not subside. Ice & Elevation Apply ice packs frequently against the painful area. Many different schedules are recommended, such as "20 minutes on, 20 minutes off" or "one hour ice, two hours rest." If you need to work, you may need to go longer between ice treatments. You should plan to have the area ice packed AT LEAST one- fourth of the time. The ice should be applied over the wrap, tape, or splint, or over a layer of cloth -- not directly against the skin. Some ice bags have a built-in cloth and can be put directly on the skin. Your injured part should be elevated as much as possible over the next 48 hours. Try to keep the injury above the level of the heart. Avoid use of the injured area. Elevation and rest will decrease the swelling. FOLLOW-UP CARE: If you have been referred to a physician for follow-up care, call the physician s office for an appointment as you were instructed or within the next two days. If you experience worsening or a significant change in your symptoms, notify the physician immediately or return to the Emergency Department at any time for re-evaluation. Forms: Elevated Blood Pressure, Return to Work Referrals: SHARON LEE MD [ACTIVE STAFF] - Follow up as needed
[2018-03-02 17:42] VITALS: BP 139/78
== END 2018-03-02 17:42 | disposition home or self-care (01) ==
LOC: ER 13:58
DX: S60.222A Contusion of left hand, initial encounter (principal); S60.219A Contusion of unspecified wrist, initial encounter; M25.532 Pain in left wrist; W01.0XXA Fall on same level from slipping, tripping and stumbling without subsequent striking against object, initial encounter; Y92.009 Unspecified place in unspecified non-institutional (private) residence as the place of occurrence of the external cause; J45.909 Unspecified asthma, uncomplicated; G89.29 Other chronic pain; Z79.891 Long term (current) use of opiate analgesic; Z91.048 Other nonmedicinal substance allergy status; Z88.5 Allergy status to narcotic agent; Z91.040 Latex allergy status; Z87.891 Personal history of nicotine dependence
CPT/HCPCS: 99283; 73130; 73110; L3908

== ENCOUNTER 2018-06-28 19:56 | Emergency (ER) | payer MEDICAID, OTHER ==
[2018-06-28 20:09] VITALS: BP 129/73
--- NOTE | 2018-06-28 21:04 | RADIOLOGY REPORT (SQ) ---
CLINICAL HISTORY: left foot pain s/p injury COMPARISON: None. 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 Joint spaces are preserved. Soft tissues are unremarkable. There is a tiny calcaneal spur. IMPRESSION: No acute osseous findings.
--- NOTE | 2018-06-28 21:04 | RADIOLOGY REPORT (SQ) ---
CLINICAL HISTORY: left knee pain s/p injury COMPARISON: None. 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 Joint spaces are preserved. Soft tissues are unremarkable. IMPRESSION: No acute osseous findings.
[2018-06-28] MEDS ORDERED: ACETAMINOPHEN 325 MG TABLET PO ONE (21:11)
--- NOTE | 2018-06-28 21:24 | ER Document Report ---
HPI - HPI Time Seen by Provider: 06/28/18 20:57 Pain Level: 5 Notes: Patient is a 42-year-old female with a history of chronic pain who presents to the ED complaining of left knee pain and left foot pain status post injury prior to arrival. Patient states that she slipped and landed on the anterior part of her knee. Patient states that her foot went backwards. Patient states that she has been able to ambulate since then, but is limping. Patient states that the pain is contained to the foot and to the anterior knee. She is not on any blood thinners. Denies any headache, fever, head injury, LOC, neck pain, changes in vision/speech/mentation/hearing, URI, sore throat, chest pain, palpitations, syncope, cough, shortness of breath, wheeze, dyspnea, abdominal pain, nausea/vomiting/diarrhea, urinary retention, dysuria, hematuria, loss of control of bowel or bladder, numbness/tingling, saddle anesthesia, muscle paralysis/weakness, or rash. - ROS Systems Reviewed and Negative: Yes All other systems reviewed and negative - REPRODUCTIVE LMP: 06/20 Reproductive: DENIES: : Past Medical History - Social History Smoking Status: Unknown if Ever Smoked Family History: Arthritis, CAD, CVA, DM, Hyperlipidemia, Hypertension, Malignancy, Thyroid Disfunction Pulmonary Medical History: Reports: Hx Asthma, Hx Bronchitis Neurological Medical History: Reports: Hx Migraine Renal/ Medical History: Reports: Hx Ovarian Cysts. Denies: Hx Peritoneal Dialysis Musculoskeletal Medical History: Reports Hx Arthritis, Reports Hx Musculoskeletal Deformity - scoliosis, DDD, Reports Hx Musculoskeletal Trauma Traumatic Medical History: Reports: Hx Fractures - foot and ankle right Past Surgical History: Reports: Hx Abdominal Surgery - diagnostic laparoscopy, Hx Appendectomy, Hx Genitourinary Surgery - urethral diverticulectomy, Hx Gynecologic Surgery - cervical ablation,, uterine trimed back lesions, Hx Oral Surgery - all 4 wisdom, Hx Orthopedic Surgery - knee bilateral, carpal tunnel right, Hx Tubal Ligation, Hx Urinary Tract Surgery - bladder sling - Immunizations Immunizations up to date: Yes Hx Diphtheria, Pertussis, Tetanus Vaccination: Yes Vertical Provider Document - CONSTITUTIONAL Agree With Documented VS: Yes Notes: PHYSICAL EXAMINATION: GENERAL: Well-appearing, well-nourished and in no acute distress. LUNGS: Breath sounds clear to auscultation bilaterally and equal. No wheezes rales or rhonchi. HEART: Regular rate and rhythm without murmurs, rubs, gallops. Musculoskeletal: Lt knee: No obvious swelling, ecchymosis, effusion, or deformity. FROM to passive/active and flexion >90 w/o difficulty. Strength 5+/ 5. N/V intact distal. + tenderness to the anteromedial knee. Ligamentous grossly stable, limited exam with larger leg size. Lanny grossly negative. Patellar grind negative. No calf tenderness. Compartments to LE are soft. No foot drop. Lt foot/ankle: FROM to passive/active dorsiflexion. Strength 5+/5. N/V intact distal. + tenderness to the dorsal lateral foot. No bony tenderness of the ankle. Achilles intact. Extremities: No cyanosis, clubbing, or edema b/l. Peripheral pulses 2+. Capillary refill less than 3 seconds. Devora neg b/l. NEUROLOGICAL: Normal speech, limping gait. Normal sensory, motor exams PSYCH: Normal mood, normal affect. SKIN: Warm, Dry, normal turgor, no rashes or lesions noted. - INFECTION CONTROL TRAVEL OUTSIDE OF THE [place] IN LAST 30 DAYS: No Course - Re-evaluation Re-evalutation: 06/28/18 21:22 Patient is an afebrile, well-hydrated, 42-year-old female who presents to the ED with left knee and foot pain which I suspect to be a sprain versus strain. Vitals are acceptable without any significant tachycardia, tachypnea, or hypoxia. PE is otherwise unremarkable for any neurovascular compromise, obvious tendon/ligament rupture, obvious fracture/dislocation, septic joint. X- rays unremarkable for any acute pathology. Crutches and jennifer-wrap were provided today. Pt declined knee immobilizer. Tylenol given PO. Patient is nontoxic- appearing. Patient is able to ambulate >4 steps and weight-bear although she is limping. No other labs or imaging warranted at this time based on H&P. Conservative measures otherwise for symptoms. Recheck with your PCM in 3-5 days. Consider consult orthopedics. Return to the ED with any worsening/ concerning symptoms otherwise as reviewed in discharge. Patient is in agreement. - Vital Signs Vital signs: Temp Pulse Resp BP Pulse Ox 98.1 F 74 16 129/73 H 98 06/28/18 20:07 06/28/18 20:07 06/28/18 20:07 06/28/18 20:07 06/28/18 20:07 Discharge - Discharge Clinical Impression: Left foot pain Left knee pain Qualifiers: Chronicity: acute Qualified Code(s): M25.562 - Pain in left knee Condition: Stable Disposition: HOME, SELF-CARE Instructions: Use of Crutches ([facility]), Ice & Elevation ([facility]) Additional Instructions: Rest, Ice, Compression, Elevation Use crutches/jennifer-wrap as directed Tylenol/ibuprofen as needed Light stretches daily Strength exercises as able Moist heat and massage may help F/u with your PCP in 3-5 days for a recheck Consider consult(s) with Orthopedics/physical therapy for ongoing/worsening symptoms Return to the ED with any worsening symptoms and/or development of fever, headache, chest pain, palpitations, syncope, shortness of breath, trouble breathing, abdominal pain, n/v/d, muscle weakness/paralysis, numbness/tingling, swelling, redness, or other worsening symptoms that are concerning to you. Forms: Elevated Blood Pressure Referrals: [facility] (ED) [Provider Group] - Follow up as needed
== END 2018-06-28 21:50 | disposition home or self-care (01) ==
LOC: ER 19:56
DX: M25.562 Pain in left knee (principal); M79.672 Pain in left foot; Z98.51 Tubal ligation status
CPT/HCPCS: 99283; 73630; 73564; J3490

== ENCOUNTER 2018-07-16 14:07 | Emergency (ER) | payer MEDICAID ==
[2018-07-16] MEDS ORDERED: IBUPROFEN 800 MG TABLET PO ONE (14:11)
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
--- NOTE | 2018-07-16 15:40 | RADIOLOGY REPORT (SQ) ---
EXAM DESCRIPTION: FINGER LEFT COMPLETED DATE/TIME: 07/16/2018 3:21 pm REASON FOR STUDY: fall, L 4th finger pain COMPARISON: 03/02/2018. NUMBER OF VIEWS: Three views. TECHNIQUE: AP, lateral, and oblique images acquired of the left fourth finger. LIMITATIONS: None. FINDINGS: MINERALIZATION: Normal. BONES: No acute fracture or dislocation. No worrisome bone lesions. SOFT TISSUES: No soft tissue swelling. No foreign body. OTHER: No other significant finding. IMPRESSION: NO RADIOGRAPHIC EVIDENCE OF ACUTE INJURY. TECHNICAL DOCUMENTATION: JOB ID: [id number] [employer]- All Rights Reserved Reading location - IP/workstation name: [email or web address]
[2018-07-16 16:43] VITALS: BP 126/91
== END 2018-07-16 16:43 | disposition home or self-care (01) ==
LOC: ER 14:07
DX: S63.615A Unspecified sprain of left ring finger, initial encounter (principal); M79.645 Pain in left finger(s); W19.XXXA Unspecified fall, initial encounter; J45.909 Unspecified asthma, uncomplicated
CPT/HCPCS: 99283; 73140; J3490

== ENCOUNTER 2019-08-07 12:26 | Emergency (ER) | payer OTHER, MEDICAID ==
[2019-08-07 12:37] VITALS: BP 140/81
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
[2019-08-07] MEDS ORDERED: OXYCODONE-ACETAMINOPHEN 5-325 MG TABLET PO ONE (15:01)
== END 2019-08-07 15:12 | disposition home or self-care (01) ==
LOC: ER 12:26
DX: M54.2 Cervicalgia (principal); M25.571 Pain in right ankle and joints of right foot; M25.532 Pain in left wrist; V49.40XA Driver injured in collision with unspecified motor vehicles in traffic accident, initial encounter; J45.909 Unspecified asthma, uncomplicated
CPT/HCPCS: 99283